=== PATIENT | male | born 1955 | race Caucasian/White ===

== ENCOUNTER → 2019-02-27 | Day surgery (SDC) | payer BC ==
[~2019-02-27] MED LIST: BUPIVACAINE HCL 0.5% INJ 30 ML VIAL INJ ONE; CEFAZOLIN SOD 1 GM/NS 50ML 50 ML IV ONE; DEXAMETHASONE SOD PHOS INJ 4 MG/ML VIAL ONE; FENTANYL CITRATE/PF 100MCG/2 ML INJ ONE; MIDAZOLAM HCL 2 MG/2 ML VIAL ONE; PROPOFOL IV EMULSION 10 MG/ML 20 ML VIAL ONE
[2019-02-27 07:53] VITALS: BP 132/81
--- OUTSIDE RECORDS SUMMARY | 2019-02-27 08:32 | XMS REPORT ---
Author Author [facility] Address Unknown Phone Unavailable Care Team Providers Care Group Work Program Aide Name Role Phone Mark KAUR Unavailable Unavailable Gomez BUENO Unavailable Unavailable Problems This patient has no known problems. Allergies, Adverse Reactions, Alerts This patient has no known allergies or adverse reactions. Medications This patient has no known medications. Results Test Description Test Time Test Comments Text Results Atomic Results Result Comments CT, ABDOMEN 2018-11-30 12:04:[address] scan of the abdomen and pelvis. MEDICAL HISTORY: Right flank pain. COMPARISON STUDY: None available. TECHNIQUE: Contiguous helical slices were acquired through the abdomen and pelvis without the administration of oral or intravenous contrast. This exam was performed according to our department dose optimization program which includes automated exposure control, adjustment of the mA and/or kV according to the patient's size and/or use of iterative reconstruction technique. FINDINGS: A 1 mm nodule is seen in the left lower lobe on image 3. No imaging follow-up is suggested. The abdomen and pelvis are limited by lack of contrast. The liver, spleen, pancreas and adrenal glands are unremarkable. The gallbladder and biliary tree are unremarkable. Mild to moderate right-sided hydronephrosis is seen with hydroureter, perinephric and periureteric stranding. A 2 mm calculus is lodged in the distal right ureter, approximately 1 cm proximal to the right UVJ. In the upper pole of the right kidney is a 1.9 x 1.6 cm cyst. No other renal calculi are noted. There are no dilated loops of bowel seen to suggest obstruction. No evidence of appendicitis is seen. There is no fr ee fluid or free air. The prostate gland is enlarged measuring 5.5 x 4.6 cm in maximal transverse diameter. The aorta is normal in caliber. Atherosclerosis is seen. There is no suspicious adenopathy. Bone windows demonstrate a 3 mm sclerotic focus in the right iliac bone, most likely a bone island in the absence of known malignancy. Degenerative changes are seen. IMPRESSION:1. 2 mm occlusive calculus in the distal right ureter, 1 cm proximal to the right UVJ with periureteric and perinephric stranding.2. Study limited by lack of contrast.3. Enlarged prostate gland. Signed: Dameon Cline MDReport Verified Date/Time: 11/30/2018 12:04:35 Reading Location: [address] Consult Reading Room SE 2018-11-30 11:57:00 LIPASE (BEAKER) (test ampy=482) 111 U/L 40-240 BASIC METABOLIC [id number] 11:57:00* Test Item Value Reference Range Comments SODIUM (BEAKER) (test gwsm=068) 137 meq/L 135-148 POTASSIUM (BEAKER) (test wbeo=480) 4.5 meq/L 3.6-5.5 CHLORIDE (BEAKER) (test iosj=531) 101 meq/L 98-106 CO2 (BEAKER) (test land=436) 23 meq/L 24-32 BLOOD UREA NITROGEN (BEAKER) (test ckxl=186) 17 mg/dL 10-26 CREATININE (BEAKER) (test qqup=768) 1.27 mg/dL 0.50-1.20 GLUCOSE RANDOM (BEAKER) (test msqu=861) 117 mg/dL 70-110 CALCIUM (BEAKER) (test vyhw=588) 9.4 mg/dL 8.5-10.5 EGFR (BEAKER) (test acvu=2462) 57 mL/min/1.73 sq m ESTIMATED GFR IS NOT ACCURATE CREATININE CLEARANCE IN PREDICTING GLOMERULAR FILTRATION RATE. ESTIMATED GFR IS NOT APPLICABLE FOR DIALYSIS PATIENTS. AST (SGOT)2018-11-30 11:57:00* Test Item Value Reference Range Comments AST (SGOT) (BEAKER) (test bzse=354) 22 U/L 5-40 ALT (SGPT)2018-11-30 11:57:00* Test Item Value Reference Range Comments ALT (SGPT) (BEAKER) (test lheq=826) 26 U/L 5-50 BILIRUBIN, ADULT [id number] 11:57:00* Test Item Value Reference Range Comments BILIRUBIN TOTAL (BEAKER) (test pbhb=137) 0.7 mg/dL 0.1-1.2 URINALYSIS W/ [id number] 11:51:00* Test Item Value Reference Range Comments COLOR (BEAKER) (test tynp=081) Yellow CLARITY (BEAKER) (test wurt=087) Clear SPECIFIC GRAVITY UA (BEAKER) (test kpio=280) 1.032 1.001-1.035 Read from refractometer. PH UA (BEAKER) (test lyfy=845) 5.0 5.0-8.0 PROTEIN UA (BEAKER) (test vqgt=903) Trace Negative GLUCOSE UA (BEAKER) (test mxvo=068) Negative Negative KETONES UA (BEAKER) (test moxx=475) Negative Negative BILIRUBIN UA (BEAKER) (test jasi=215) Negative Negative BLOOD UA (BEAKER) (test chqw=159) Moderate Negative NITRITE UA (BEAKER) (test spkt=506) Negative Negative LEUKOCYTE ESTERASE UA (BEAKER) (test xptk=228) Negative Negative UROBILINOGEN UA (BEAKER) (test kgfe=041) 0.2 mg/dL 0.2-1.0 BACTERIA (BEAKER) (test ehyx=259) Moderate RBC UA-MANUAL (BEAKER) (test fkus=9020) 5-10 /HPF WBC UA-MANUAL (BEAKER) (test qtha=4633) <5 /HPF SQUAMOUS EPITHELIAL MANUAL (BEAKER) (test fjlg=8068) <5 /HPF SOURCE(BEAKER) (test iios=7842) CBC W/PLT COUNT & AUTO [id number] 11:42:00* Test Item Value Reference Range Comments WHITE BLOOD CELL COUNT (BEAKER) (test gdai=228) 12.9 K/ L 4.0-10.0 RED BLOOD CELL COUNT (BEAKER) (test lmsx=792) 4.74 M/ L 4.20-5.80 HEMOGLOBIN (BEAKER) (test xfdy=789) 14.7 GM/DL 13.0-16.8 HEMATOCRIT (BEAKER) (test rqmo=632) 43.0 % 40.0-50.0 MEAN CORPUSCULAR VOLUME (BEAKER) (test wonk=968) 90.6 fL 82.0-98.0 MEAN CORPUSCULAR HEMOGLOBIN (BEAKER) (test arfu=431) 30.9 pg 27.0-33.0 MEAN CORPUSCULAR HEMOGLOBIN CONC (BEAKER) (test zyck=277) 34.1 GM/DL 32.0-36.0 RED CELL DISTRIBUTION WIDTH (BEAKER) (test tsrf=976) 12.0 % 10.3-14.2 PLATELET COUNT (BEAKER) (test vqab=029) 230 K/CU MM 150-430 MEAN PLATELET VOLUME (BEAKER) (test cjox=251) 7.7 fL 6.5-10.5 NEUTROPHILS RELATIVE PERCENT (BEAKER) (test jjxn=343) 80 % LYMPHOCYTES RELATIVE PERCENT (BEAKER) (test jtao=272) 13 % MONOCYTES RELATIVE PERCENT (BEAKER) (test bbky=617) 6 % EOSINOPHILS RELATIVE PERCENT (BEAKER) (test etps=413) 2 % BASOPHILS RELATIVE PERCENT (BEAKER) (test xjit=649) 1 % NEUTROPHILS ABSOLUTE COUNT (BEAKER) (test ozyv=971) 10.22 K/ L 1.80-8.00 LYMPHOCYTES ABSOLUTE COUNT (BEAKER) (test wwyf=263) 1.61 K/ L 1.48-4.50 MONOCYTES ABSOLUTE COUNT (BEAKER) (test hwzm=313) 0.75 K/ L 0.00-1.30 EOSINOPHILS ABSOLUTE COUNT (BEAKER) (test hwop=702) 0.19 K/ L 0.00-0.50 BASOPHILS ABSOLUTE COUNT (BEAKER) (test wfpi=559) 0.09 K/ L 0.00-0.20 TISSUE [id number] 15:32:00Surgical Pathology Report Case: [id number] Authorizing Provider: Oleg Bueno MD Collected: 07/22/2017 1038 Ordering Location: [facility] Endoscopy Received: 07/22/2017 1432 Services Pathologist: Arpita Rangel MD Specimen: Polyp, Colon - Cecum, polypectomy COLON, CECUM, ENDOSCOPIC POLYPECTOMY: - MULTIPLE PIECES OF TUBULAR ADENOMA - NO HIGH GRADE DYSPLASIA OR INVASIVE CARCINOMA SEEN Signing Pathologist Direct Phone Line: [phone] signed by Arpita Rangel MD on 07/25/2017 at 3:32 [id number] polyp Cecum colon polyp The specimen is received in a formalin-filled container labeled with the patient's information and labeled "cecum colon polyp" and consists of multiple fragments of rangel tissue ranging from 0.1 to 0.4 cm, submitted in A1. CG/ew PERFORMED
--- NOTE | 2019-02-27 16:03 | Operative Report ---
DATE OF PROCEDURE: 02/27/2019 SURGEON: Antoine Peoples DPM ([place]) PREOPERATIVE DIAGNOSIS: Neuroma, second interspace, right and neuroma third interspace, right. POSTOPERATIVE DIAGNOSIS: Neuroma, second interspace, right and neuroma third interspace, right. OPERATIVE PROCEDURE: Excision of neuroma, second interspace, right and excision of neuroma, third interspace, right. DESCRIPTION OF PROCEDURE: The patient was placed on the OR table in the supine position. The right lower extremity was prepped and draped in the usual manner. A MAC anesthesia was used and a local anesthetic consisting of 15 mL of 0.5 Marcaine. Hemostasis accomplished with a pneumatic cuff set at 250 mmHg at ankle level. Procedure #1: Excision of neuroma second interspace. An incision approximately 3 cm in length was made on the interspace between the second and third toe. The incision was deepened. Blood vessels were either ligated or retracted. The nerve was identified and isolated. Both distal branches were resected and then the neuroma was removed in total. The wound was flushed with sterile saline solution. Subcutaneous tissue closed with 3-0 Vicryl and skin with 4-0 nylon. Procedure #2: Excision of neuroma third interspace of the right foot. An incision approximately 3 cm in length was made on the interspace between the second and third toe. The incision was deepened. Blood vessels were either ligated or retracted. The nerve was identified and isolated. Both distal branches were resected and then the neuroma was removed in total. The wound was flushed with sterile saline solution. Subcutaneous tissue closed with 3-0 Vicryl and skin with 4-0 nylon. Following the surgery, a sterile compression dressing was applied. At this time, the pneumatic cuff was released and a reflex hyperemia was observed to all digits. The patient tolerated the procedure and anesthesia well and left the OR to recovery in good condition with vital signs stable. Antoine Peoples DPM ([place]) /MODL /[id number]
== END | disposition home or self-care (01) ==
LOC: OR 05:17
PROVIDERS: ATTEND Podiatrist Foot & Ankle Surgery
DX: G57.61 Lesion of plantar nerve, right lower limb (principal); Z88.5 Allergy status to narcotic agent; Z88.8 Allergy status to other drugs, medicaments and biological substances; G47.33 Obstructive sleep apnea (adult) (pediatric)
CPT/HCPCS: 28080 ×2; 93005; J0690; J1100; J2250; J2704; J3010